=== PATIENT | female | born 1935 | race Caucasian/White ===

== ENCOUNTER 2018-05-16 12:03 | Outpatient (CLI) | payer OTHER | END 2018-05-16 12:39 | disposition home or self-care (01) | LOC: RAD 12:03 | DX: R05 Cough (principal) ==

== ENCOUNTER 2018-05-16 13:37 | Outpatient (CLI) | payer OTHER | END 2018-05-16 13:48 | disposition home or self-care (01) | LOC: EKG 13:37 | DX: R07.89 Other chest pain (principal) ==